=== PATIENT | female | born 1970 | race Caucasian/White ===

== ENCOUNTER 2020-09-08 12:30 | Emergency (ER) | payer OTHER ==
[2020-09-08 12:34] VITALS: TEMP 97.8
[2020-09-08] MEDS ORDERED: MORPHINE SULFATE 4 MG/ML SYRINGE IV STA (13:02)
[2020-09-08 13:29] LABS: Basophils % (A) 0 %; Eosinophils # (A) 0.1 k/uL (0-0.7); Eosinophils % (A) 1 %; HCT 43.7 % (34.0-46.0); HGB 14.9 gm/dL (11.4-16.0); Lymphocytes # (A) 1.5 k/uL (1.0-4.8); Lymphocytes % (A) 15 %; MCH 30.5 pg (25.0-35.0); MCV 89.6 fL (80.0-100.0); Mean Platelet Volume 6.6; Monocytes # (A) 0.2 k/uL (0-1.0); Monocytes % (A) 2 %; Neutrophils # (A) 8.4 k/uL (1.3-7.7); Neutrophils % (A) 82 %; Platelet Count 307 k/uL (150-450); RBC 4.87 m/uL (3.80-5.40); RDW 12.8 % (11.5-15.5); WBC 10.2 k/uL (3.8-10.6)
[2020-09-08 13:40] LABS: ALT 40 U/L (4-34); AST 24 U/L (14-36); African American GFR (CKD) >90 (>60 ml/min/1.73 sqM); Albumin 4.4 g/dL (3.5-5.0); Alkaline Phosphatase 142 U/L (38-126); Amylase 54 U/L (30-110); Anion Gap 8 mmol/L; Blood Urea Nitrogen 16 mg/dL (7-17); Calcium 9.7 mg/dL (8.4-10.2); Carbon Dioxide 25 mmol/L (22-30); Chloride 105 mmol/L (98-107); Glucose 160 mg/dL (74-99); Lipase 107 U/L (23-300); Non-African American GFR(CKD) >90 (>60 ml/min/1.73 sqM); Potassium 4.3 mmol/L (3.5-5.1); Sodium 138 mmol/L (137-145); Total Bilirubin 0.3 mg/dL (0.2-1.3); Total Protein 7.3 g/dL (6.3-8.2)
--- NOTE | 2020-09-08 14:26 | CT ---
EXAMINATION TYPE: CT abdomen pelvis w con DATE OF EXAM: 09/08/2020 COMPARISON: None INDICATION: Abdominal pain, back pain DLP: 705.3 mGycm, Automated exposure control for dose reduction was used. CONTRAST: 100 mL of Isovue 300. Study performed without Oral Contrast TECHNIQUE: Axial images were obtained from above the diaphragm to the pubic rami in the axial plane a t 5 mm thick sections. Reconstructed images are reviewed on the computer in the coronal plane. FINDINGS: Limited CT sections are obtained the lung bases. The lung bases are clear. CT ABDOMEN: Liver: Normal Spleen: Normal Pancreas: Normal Adrenal glands: The adrenal glands are normal. Gallbladder: Normal Kidneys: No masses are evident. No hydronephrosis is present. No cysts are present. Delayed images were obtained through the kidneys, which remain unremarkable. Aorta: Normal Inferior vena cava: Normal. CT PELVIS: Loops of bowel within the abdomen and pelvis are normal. This study is lateral contrast imaging b owel dilation. A few diverticular changes without acute diverticulitis or within the sigmoid colon Appendix: Normal as visualized. Urinary bladder: Normal. Genitourinary structures: Uterus and ovaries are not identified Osseous structures: No suspicious osseous abnormality IMPRESSIONS: 1. No suspicious acute changes CT abdomen and pelvis
[2020-09-08 14:28] LABS: Appearance,Urine Clear (Clear); Bilirubin,Urine Negative (Negative); Blood,Urine Negative (Negative); Color,Urine Light Yellow; Glucose,Urine (UA) Negative (Negative); Ketones,Urine Negative (Negative); Leukocyte Esterase,Urine Negative (Negative); Nitrite,Urine Negative (Negative); PH, Urine 7.5 (5.0-8.0); Protein,Urine Negative (Negative); Specific Gravity,Urine 1.028 (1.001-1.035); Urobilinogen,Urine <2.0 mg/dL (<2.0)
--- NOTE | 2020-09-08 14:33 | ED ---
Abdominal Pain HPI - General Chief Complaint: Abdominal Pain Stated Complaint: Crohn's Flareup Time Seen by Provider: 09/08/20 12:38 Source: patient Mode of arrival: ambulatory Limitations: no limitations - History of Present Illness Initial Comments: Patient complains of sharp attacks of abdominal pain. Her pain is in the right and left lower quadrant. Patient saw a provider at an urgent care who recommended a CAT scan at the emergency department. Patient has no fevers or chills. She has no chest pain or shortness of breath. She has no blood in the stool or black or tarry stool. She has no headache, lightheadedness or dizziness. - Related Data Home Medications Medication Instructions Recorded Confirmed predniSONE See Taper PO PC-BRKFST 09/08/20 09/08/20 Allergies Allergy/AdvReac Type Severity Reaction Status Date / Time penicillin G Allergy Anaphylaxis Verified 09/08/20 13:18 Review of Systems ROS Statement: Those systems with pertinent positive or pertinent negative responses have been documented in the HPI. ROS Other: All systems not noted in ROS Statement are negative. Past Medical History Additional Past Medical History / Comment(s): Crohns History of Any Multi-Drug Resistant Organisms: None Reported Past Surgical History: Hysterectomy Past Psychological History: No Psychological Hx Reported Smoking Status: Never smoker Past Alcohol Use History: Rare Past Drug Use History: None Reported General Exam Limitations: no limitations General appearance: alert, in no apparent distress Head exam: Present: atraumatic, normocephalic, normal inspection Eye exam: Present: normal appearance, PERRL, EOMI. Absent: scleral icterus, conjunctival injection, periorbital swelling ENT exam: Present: normal exam, mucous membranes moist Neck exam: Present: normal inspection. Absent: tenderness, meningismus, lymphadenopathy Respiratory exam: Present: normal lung sounds bilaterally. Absent: respiratory distress, wheezes, rales, rhonchi, stridor Cardiovascular Exam: Present: regular rate, normal rhythm, normal heart sounds. Absent: systolic murmur, diastolic murmur, rubs, gallop, clicks GI/Abdominal exam: Present: soft, normal bowel sounds. Absent: distended, tenderness, guarding, rebound, rigid Extremities exam: Present: normal inspection, full ROM, normal capillary refill. Absent: tenderness, pedal edema, joint swelling, calf tenderness Back exam: Present: normal inspection Neurological exam: Present: alert, oriented X3, CN II-XII intact Psychiatric exam: Present: normal affect, normal mood Skin exam: Present: warm, dry, intact, normal color. Absent: rash Course Vital Signs 09/08/20 12:31 Temperature 97.8 F Pulse Rate 88 Respiratory 20 Rate Blood Pressure 126/80 O2 Sat by Pulse 98 Oximetry Medical Decision Making - Medical Decision Making Patient presents with abdominal pain. Her laboratory studies are normal. Her CT is normal. I find no evidence of an acute emergency condition. She tolerates oral intake. She is stable for discharge. - Lab Data Result diagrams: 09/08/20 13:06 09/08/20 13:06 Lab Results 09/08/20 09/08/20 09/08/20 Range/Units 13:06 13:06 13:06 WBC 10.2 (3.8-10.6) k/uL RBC 4.87 (3.80-5.40) m/uL Hgb 14.9 (11.4-16.0) gm/dL Hct 43.7 (34.0-46.0) % MCV 89.6 (80.0-100.0) fL MCH 30.5 (25.0-35.0) pg MCHC 34.0 (31.0-37.0) g/dL RDW 12.8 (11.5-15.5) % Plt Count 307 (150-450) k/uL MPV 6.6 Neutrophils % 82 % Lymphocytes % 15 % Monocytes % 2 % Eosinophils % 1 % Basophils % 0 % Neutrophils # 8.4 H (1.3-7.7) k/uL Lymphocytes # 1.5 (1.0-4.8) k/uL Monocytes # 0.2 (0-1.0) k/uL Eosinophils # 0.1 (0-0.7) k/uL Basophils # 0.0 (0-0.2) k/uL Sodium 138 (137-145) mmol/L Potassium 4.3 (3.5-5.1) mmol/L Chloride 105 (98-107) mmol/L Carbon Dioxide 25 (22-30) mmol/L Anion Gap 8 mmol/L BUN 16 (7-17) mg/dL Creatinine 0.64 (0.52-1.04) mg/dL Est GFR (CKD-EPI)AfAm >90 (>60 ml/min/1.73 sqM) Est GFR (CKD-EPI)NonAf >90 (>60 ml/min/1.73 sqM) Glucose 160 H (74-99) mg/dL Calcium 9.7 (8.4-10.2) mg/dL Total Bilirubin 0.3 (0.2-1.3) mg/dL AST 24 (14-36) U/L ALT 40 H (4-34) U/L Alkaline Phosphatase 142 H (38-126) U/L Total Protein 7.3 (6.3-8.2) g/dL Albumin 4.4 (3.5-5.0) g/dL Amylase 54 (30-110) U/L Lipase 107 (23-300) U/L Urine Color Light Yellow Urine Appearance Clear (Clear) Urine pH 7.5 (5.0-8.0) Ur Specific [place] 1.028 (1.001-1.035) Urine Protein Negative (Negative) Urine Glucose (UA) Negative (Negative) Urine Ketones Negative (Negative) Urine Blood Negative (Negative) Urine Nitrite Negative (Negative) Urine Bilirubin Negative (Negative) Urine Urobilinogen <2.0 (<2.0) mg/dL Ur Leukocyte Esterase Negative (Negative) Disposition Clinical Impression: Abdominal pain Disposition: HOME SELF-CARE Condition: Good Instructions (If sedation given, give patient instructions): Abdominal Pain (ED) Is patient prescribed a controlled substance at d/c from ED?: No Referrals: None,Stated [Primary Care Provider] - 1-2 days Loyd Lentz MD [STAFF PHYSICIAN] - 1-2 days
[2020-09-08] MEDS ORDERED: PANTOPRAZOLE 40 MG TABLET PO STA (14:43)
[2020-09-08] MEDS ORDERED: KETOROLAC 15 MG/ML 1 ML VIAL IVP STA (14:43)
[2020-09-08 14:57] VITALS: BP 123/85; PULSE 63; RESP 16
== END 2020-09-08 14:57 | disposition home or self-care (01) ==
LOC: EC 12:30
DX: R10.32 Left lower quadrant pain (principal); Z90.710 Acquired absence of both cervix and uterus
CPT/HCPCS: 36415; 80053; 82150; 83690; 85025; 81003; 74177; 99284; 96374; 96375; J2270; J1885; Q9967

== ENCOUNTER → 2020-09-15 | Outpatient (CLI) | payer OTHER ==
--- NOTE | 2020-09-16 14:13 | MM ---
Reason for exam: screening (asymptomatic). Baseline mammogram. History: Taking estrogen for 4 months. Physical Findings: Nurse did not find any significant physical abnormalities on exam. MG Screening Mammo w CAD Bilateral CC and MLO view(s) were taken. The breast tissue is heterogeneously dense. This may lower the sensitivity of mammography. Nodule inferior medial left breast middle depth. These results were verbally communicated with the patient and result sheet given to the patient on 09/15/20. ASSESSMENT: Incomplete: need additional imaging evaluation, BI-RAD 0 RECOMMENDATION: Special view mammogram of both breasts. Ultrasound of the left breast.
--- NOTE | 2020-09-16 14:15 | MM ---
Reason for exam: additional evaluation requested from abnormal screening. History: Taking estrogen for 4 months. Physical Findings: Breast exam preformed at baseline screening. MG Work Up Mamm w CAD BILAT Bilateral LM view(s) were taken. Spot compression CC and spot compression MLO view(s) were taken of the left breast. The breast tissue is heterogeneously dense. This may lower the sensitivity of mammography. 16mm nodule 7 o'clock left breast 4cm from nipple. Right breast return to screening mammogram in 1 year. These results were verbally communicated with the patient and result sheet given to the patient on 09/15/20. ASSESSMENT: Incomplete: need additional imaging evaluation, BI-RAD 0 RECOMMENDATION: Ultrasound of the left breast.
--- NOTE | 2020-09-16 14:18 | USB ---
Reason for exam: additional evaluation requested from abnormal screening. History: Taking estrogen for 4 months. US Breast Workup Limited LT Left limited breast ultrasound including focal area of concern, retroareolar and axilla demonstrates a 1.6 x 0.7 x 1.1cm lobular, solid, hypoechoic lesion at 8 o'clock. Left solid nodule with cyst adjacent, recommend left ultrasound biopsy. These results were verbally communicated with the patient and result sheet given to the patient on 09/15/20. ASSESSMENT: Suspicious, BI-RAD 4 RECOMMENDATION: Ultrasound core biopsy of the left breast. Called Dr. Mckeon's office with mammographic findings and has scheduled an appointment for the patient for 10/02/20 at 11:[address] Perez. Biopsy scheduled for 10/05/20 at 1:00. PRELIMINARY REPORT CALLED AND FAXED TO DR. PEREZ ON 09/16/20.
== END | disposition home or self-care (01) ==
LOC: RADMAMWWP 14:47 → EDUNIT# 15:00
PROVIDERS: ATTEND Obstetrics & Gynecology
DX: Z12.31 Encounter for screening mammogram for malignant neoplasm of breast (principal); N60.12 Diffuse cystic mastopathy of left breast; N63.24 Unspecified lump in the left breast, lower inner quadrant; R92.2 Inconclusive mammogram
CPT/HCPCS: 77066; 77067

== ENCOUNTER → 2020-10-02 | Outpatient (CLI) | payer OTHER ==
[2020-10-02 11:22] VITALS: BP 104/72; PULSE 96; RESP 16; TEMP 98.4
--- NOTE | 2020-10-02 11:38 | P.GSHP ---
History of Present Illness H&P Date: 10/02/20 Chief Complaint: abnormal left breast ultrasound Constanza is a 49 year old white female seen in consultation for DR. Mckeon regarding an abnormal left breast ultrasound. She is from [place] and states 6 months ago in her shower she felt a spot in her left breast, but she did not do anything secondary to COVID. This was her first ever mammogram. It was performed on . A 16 mm nodule at the 7 o'clock position was of the left breast was noted 4 cm from the nipple and an ultrasound was recommended. Ultrasound revealed a 1.6 x 1.1 cm lobular lesion for which core biopsy was recommended. These films were personally reviewed with Dr. Valenzuela from radiology. The patient states that the nodule she felt 6 months ago has gone away and she does not feel any new lumps masses or nodules in either breast. It is not complaining of any nipple discharge or skin changes. She has not had any recent trauma or infection in the breast. She has not had any surgery on her breast. The reason for the mammogram was that the patient was considering hormone replacement therapy and a mammogram was done as a baseline prior to this been initiated. Estradiol level less than 5 postmenopausal is less than 6 Caffeine: green tea daily nicotine: occasional chocolate: All times per week Family history: none Hormonal History: menarche: 11 , breast fed: yes, age at first : 17 menopause: Hysterectomy at 28 for endometriosis and fibroid tumors, her ovaries were not removed did not take hormones BCP: in remote past 6 months, hormones: 1 month in remote past Surgical history: Hysterectomy Ligation Medical history: Crohn's disease: over past 10 years (recently completed steroid) appointment with EVI Kennedy October 13 Social history: Nicotine: One pack for 2 weeks Alcohol: 2-3 glasses per day Drugs: Negative - Constitutional Constitutional: Reports sweats - EENT Eyes: denies blurred vision, denies pain Ears: deny: decreased hearing, tinnitus Ears, nose, mouth and throat: Denies headache, Denies sore throat - Breasts Breasts: bilateral: as per HPI - Cardiovascular Cardiovascular: Denies chest pain, Denies shortness of breath - Respiratory Respiratory: Denies cough, Denies 7 - Gastrointestinal Comment: Crohn's disease Gastrointestinal: Reports abdominal pain, Reports diarrhea, Denies nausea, Denies vomiting - Genitourinary (Female) Genitourinary: Denies dysuria, Denies hematuria - Menstruation Menstruation: Reports post hysterectomy - Musculoskeletal Comment: toes burning - Integumentary Integumentary: Denies pruritus, Denies rash - Neurological Comment: numbness in toes Neurological: Reports numbness, Denies weakness - Psychiatric Psychiatric: Denies anxiety, Denies depression - Endocrine Endocrine: Reports weight change, Denies fatigue - Hematologic/Lymphatic Comment: none - Allergic/Immunologic Allergic/Immunologic: Reports seasonal allergies Past Medical History Additional Past Medical History / Comment(s): Crohns History of Any Multi-Drug Resistant Organisms: None Reported Past Surgical History: Hysterectomy Past Psychological History: No Psychological Hx Reported Smoking Status: Never smoker Past Alcohol Use History: Rare Past Drug Use History: None Reported Medications and Allergies Home Medications Medication Instructions Recorded Confirmed Type Pantoprazole Sodium [Protonix] 40 mg PO DAILY #30 tablet. 09/08/20 Rx predniSONE See Taper PO PC-BRKFST 09/08/20 09/08/20 History Allergies Allergy/AdvReac Type Severity Reaction Status Date / Time penicillin G Allergy Anaphylaxis Verified 09/08/20 13:18 Surgical - Exam BMI 21.8 - General no distress - Eyes normal ocular movement - ENT normal pinna, normal nares - Neck no masses, trachea midline - Respiratory normal respiratory effort, clear to auscultation - Cardiovascular Rhythm: regular Heart Sounds: normal: S1, S2 - Abdomen Abdomen: soft, non tender, no guarding, no rigid, no rebound - Integumentary normal turgor - Neurologic no disoriented, no combative - Musculoskeletal normal gait - Psychiatric oriented to time, oriented to person, oriented to place, speech is normal, memory intact breast exam: BRA: 34B inspection: Bilateral grade 2/3 ptosis Palpation: Right breast: Multi-positional exam fibrocystic changes no dominant masses or nodules of concern Right axilla: No adenopathy of concern Left breast: Multiple positional exam fibrocystic changes particular tension at the 8 o'clock position does not reveal any lesions of concern Left axilla: No adenopathy of concern Results Mammogram and ultrasound reviewed with Dr. Evans, ultrasound abnormality 8 o'clock position of the left breast Assessment and Plan Assessment: Impression: chrons disease Abnormal left breast mammogram and ultrasound Fibrocystic breast changes Perimenopausal patient is wishing to start hormone replacement therapy Plan: 1. Ultrasound-guided core biopsy of the left breast if this is benign patient is going to start hormone replacement therapy with Dr. Mckeon 2. Follow up after ultrasound core biopsy CC: Dr. Monique, Dr. Mckeon
== END ==
LOC: WWCWWP 11:09
PROVIDERS: ATTEND Surgery
DX: R92.8 Other abnormal and inconclusive findings on diagnostic imaging of breast (principal); N60.11 Diffuse cystic mastopathy of right breast; N60.12 Diffuse cystic mastopathy of left breast; K50.90 Crohn's disease, unspecified, without complications; F17.210 Nicotine dependence, cigarettes, uncomplicated; Z88.0 Allergy status to penicillin

== ENCOUNTER → 2020-10-05 | Day surgery (SDC) | payer OTHER ==
[2020-10-05 12:19] VITALS: RESP 16; TEMP 98.9
[2020-10-05 14:08] VITALS: BP 113/71; PULSE 71
--- NOTE | 2020-10-05 15:30 | USB ---
EXAMINATION TYPE: US biopsy breast VAD LT, MG post biopsy diagnostic mammo LT wo CAD DATE OF EXAM: 10/05/2020 CLINICAL HISTORY: 49-year-old female R92.8 Abnormal Mammogram. TECHNIQUE: Ultrasound guided core biopsy of the left breast. COMPARISON: 09/15/2020 FINDINGS: The procedure of ultrasound guided core biopsy was explained to the patient. Benefits, alt ernatives, and risks were discussed. An informed consent was then obtained. The patient was placed in supine positioning for imaging and for the procedure. The overlying skin w as prepped and draped in usual sterile fashion. Lidocaine was used as anesthetic into the skin and s ubcutaneous tissue up to area of concern in the 8:00 left breast. Under ultrasound guidance, a 13-gauge vacuum-assisted Mammotome Elite biopsy gun device was used to o btain 9 core samples. Following this, a ribbon clip was left in lesion. The patient tolerated the procedure well without any immediate complication. The patient was kept in the radiology department for short stay after the procedure and then discharged home in stable condi tion. Post procedure mammogram shows clip satisfactorily located within the 9:00 oval mass. IMPRESSION: Successful, uncomplicated ultrasound guided core biopsy of the 8 o'clock left breast mass, mammograph ic correlation. Intermediate suspicion. Full pathology results to follow.
== END ==
LOC: RADUSWWP 12:01
PROVIDERS: ATTEND Surgery
DX: D24.2 Benign neoplasm of left breast (principal); N60.12 Diffuse cystic mastopathy of left breast; N62 Hypertrophy of breast; Z88.0 Allergy status to penicillin
CPT/HCPCS: 88305; 88342; 88341; 77065; 19083; A4648; J2001

== ENCOUNTER → 2021-07-20 | Outpatient (CLI) | payer OTHER ==
--- NOTE | 2021-07-21 08:36 | XR ---
"EXAMINATION TYPE: XR hand complete LT DATE OF EXAM: 07/20/2021 COMPARISON: None HISTORY: Pain fourth digit TECHNIQUE: 3 view left hand FINDINGS: The ring was unable to be removed for the examination. Diffuse soft tissue swelling over th e ring finger is present. There is a fracture of the base of the middle phalanx left ring finger. This has intra-articular exte nsion. Soft tissue swelling is at the joint space. Joint space narrowing is present. There is diffuse narrowing of the proximal and distal interphalangeal joint spaces. No additional fra ctures are evident. IMPRESSION: 1. Fracture at the base of the middle phalanx left ring finger. A Yellow level critical message alert has been initiated for Bill Monique MD via the [employer] | Critical Results System on 07/21/2021 8:33 AM. This message alert has been sent to Bill flores MD via the preferences provided by the clinician for the receipt of Radiology Critical Findings. [address] [facility] [place] [id number]."
== END | disposition home or self-care (01) ==
LOC: RADXRMAIN 16:50
PROVIDERS: ATTEND Internal Medicine
DX: S62.625A Displaced fracture of middle phalanx of left ring finger, initial encounter for closed fracture (principal); X58.XXXA Exposure to other specified factors, initial encounter

== ENCOUNTER → 2021-10-26 | Outpatient (CLI) | payer OTHER ==
--- NOTE | 2021-10-26 19:44 | MM ---
Reason for Exam: Follow-up at short interval from prior study. Last mammogram was performed 1 year(s) and 1 month(s) ago. Patient History: Menarche at age 12. First Full-Term at age 17. Hysterectomy at age 28. Currently using Estrogen, for 4 months. 10/05/2020, Benign Core Biopsy on the left side. Risk Values: Judit 5 year model risk: 0.8%. NCI Lifetime model risk: 6.7%. Prior Study Comparison: 09/15/2020 Bilateral Screening Mammogram, [facility]. 09/15/2020 Bilateral Diagnostic Mammogram, [facility]. 10/05/2020 Left Diagnostic Mammogram, [facility]. Tissue Density: The breast tissue is heterogeneously dense. This may lower the sensitivity of mammography. Findings: Analyzed By CAD. Microclip 9:00 right breast from prior biopsy at the area of nodular density. A subtle focal asymmetry 2-3 o'clock within the left breast disperses on additional views. No significant change from prior exams. Overall Assessment: Benign, BI-RAD 2 Management: Screening Mammogram of both breasts in 1 year. 1. Patient should continue monthly self breast exams. 2. A clinical breast exam by your physician is recommended on an annual basis. 3. This exam should not preclude additional follow-up of suspicious palpable abnormalities. Results were given to the patient verbally at the time of exam. Electronically signed and approved by: Laura Rosado M.D. Radiologist
== END | disposition home or self-care (01) ==
LOC: RADMAMWWP 12:38
PROVIDERS: ATTEND Obstetrics & Gynecology
DX: R92.8 Other abnormal and inconclusive findings on diagnostic imaging of breast (principal)
CPT/HCPCS: 77066